=== PATIENT | male | born 1980 | race Caucasian/White ===

== ENCOUNTER 2021-01-01 13:12 | Inpatient (IN) | payer OTHER ==
[~2021-01-01] VITALS: Ht 180.3 cm; Wt 113.4 kg
[2021-01-01 13:26] VITALS: BP 112/83
[2021-01-01 13:38] LABS: URINE BLOOD NEGATIVE (Negative); URINE CLARITY CLEAR; URINE COLOR YELLOW; URINE GLUCOSE-RANDOM NEGATIVE (Negative); URINE KETONES TRACE (Negative); URINE LEUKOCYTES-REFLEX NEGATIVE (Negative); URINE NITRITE-REFLEX NEGATIVE (Negative); URINE PROTEIN 2+ (Negative); URINE SPECIFIC GRAVITY >= 1.030 (1.005-1.030)
[2021-01-01 13:50] LABS: URINE BILIRUBIN 1+ (Negative)
[2021-01-01 13:51] LABS: ICTOTEST (BILI CONFIRMATORY) Negative (Negative)
[2021-01-01 13:52] LABS: BACTERIA-REFLEX 1-9 Few /HPF (None Seen); CRYSTALS None Seen /LPF (None Seen); HYALINE CASTS 0-3 Few /LPF (None Seen); MUCUS >6 Heavy strn/LPF (None Seen); SQUAMOUS 4-10 Moderate /LPF (0-3); URINE RBC 0-2 Rare /HPF (0-2); URINE WBC-REFLEX 0-5 Rare /HPF (0-5)
[2021-01-01 14:45] LABS: ABSOLUTE BASOPHILS 0.1 thou/uL (0.0-0.2); ABSOLUTE EOSINOPHILS 0.1 thou/uL (0.0-0.7); ABSOLUTE MONOCYTES 1.3 thou/uL (0.0-1.2); ABSOLUTE NEUTROPHILS 10.6 thou/uL (1.6-8.1); LYMPHOCYTES 14.3 %; MCH 30.7 pg (26.0-34.0); MCHC 34.9 g/dL (28.0-37.0); MONOCYTES 9.1 %; MPV 8.2 fl. (7.2-11.1); NUCLEATED RBCS 0 /100WBC; PLATELET COUNT* 307 thou/uL (150-400); POLYS 74.6 %; RBC 4.89 mil/uL (4.50-6.00); RDW-CV 12.8 % (10.5-14.5); WBC 14.3 thou/uL (4.0-11.0)
[2021-01-01 14:54] LABS: CALCIUM 9.7 mg/dL (8.5-10.1); CREATININE 1.3 mg/dL (0.6-1.3); POTASSIUM 3.9 mmol/L (3.5-5.1)
[2021-01-01 14:59] LABS: TOTAL PROTEIN 8.6 g/dL (6.4-8.2)
[2021-01-01 21:58] VITALS: BP 116/80
[2021-01-02] VITALS (7 sets, daily range): BP systolic 128–149; BP diastolic 80–97
[2021-01-02 03:08] LABS: ABSOLUTE EOSINOPHILS 0.1 thou/uL (0.0-0.7); ABSOLUTE LYMPHOCYTES 1.8 thou/uL (0.8-5.3); ABSOLUTE MONOCYTES 1.3 thou/uL (0.0-1.2); BASOPHILS 0.3 %; EOSINOPHILS 0.4 %; LYMPHOCYTES 11.8 %; MCH 30.4 pg (26.0-34.0); MCHC 34.1 g/dL (28.0-37.0); MCV 89.3 fL (80.0-100.0); MONOCYTES 8.5 %; MPV 8.4 fl. (7.2-11.1); NUCLEATED RBCS 0 /100WBC; PLATELET COUNT* 297 thou/uL (150-400); RBC 4.59 mil/uL (4.50-6.00); WBC 15.2 thou/uL (4.0-11.0)
[2021-01-02 03:25] LABS: ALBUMIN 3.9 g/dL (3.4-5.0); CALCIUM 9.4 mg/dL (8.5-10.1); CREATININE 1.3 mg/dL (0.6-1.3)
--- NOTE | 2021-01-02 18:42 | NUR ---
PATIENT ARRIVED FROM ER THIS EVENING. PATIENT SETTLED TO ROOM. PATIENT DENIES ANY CURRENT PAIN, STATES IT IS INTERMITTENT WITH MOVEMENT. PATIENT TOLERATING CLEAR LIQUID DIET. BM TODAY. PATIENT IS UP AD ANA IN ROOM. PATIENT IS IN SHOWER AT THIS TIME. WILL CONTINUE TO MONITOR.
[2021-01-03 04:26] LABS: HEMATOCRIT 38.1 % (42.0-52.0); HEMOGLOBIN 13.1 gm/dL (14.0-18.0); MCH 30.5 pg (26.0-34.0); MCHC 34.3 g/dL (28.0-37.0); MCV 88.8 fL (80.0-100.0); MPV 8.6 fl. (7.2-11.1); RBC 4.29 mil/uL (4.50-6.00); RDW-CV 12.7 % (10.5-14.5); WBC 10.5 thou/uL (4.0-11.0)
[2021-01-03 04:44] LABS: CREATININE 1.2 mg/dL (0.6-1.3)
--- NOTE | 2021-01-03 05:14 | NUR ---
PT ALERT AND ORIENTED, UP AD ANA, TOLERATING CLD. HE RECEIVED FLUIDS/ABX SCHEDULED. DID NOT REQUEST ANY PAIN MEDS ALL SHIFT AND SAID HE HAD MORE SLEEP THIS SHIFT THAN IN THE PAST TWO NIGHTS. HE WAS ABLE TO WALK AROUND IN HALLWAYS EARLIER IN THE SHIFT. REPORTS FEELING A LOT BETTER.
[2021-01-03 08:20] VITALS: BP 138/90
--- NOTE | 2021-01-03 15:03 | NUR ---
Anticipate dc in 1-2 days. Bacteremia. IVabx. ID plans to transition to oral at dc. Per [facility], Pt is over income and does not qualify for [place] [facility]. Pt resides at home. Independent. No DME. No hx of HH or SNF. Goal is home at dc, no needs anticipated.
[2021-01-03 16:56] VITALS: BP 133/91
--- NOTE | 2021-01-03 17:52 | NUR ---
Assummed care at 1930. Pt is alert and oirented. Asssessment done and charted. Pt had antiobiotics infused. Pt had unevenful day. Will continue to provide care.
[2021-01-03 19:56] VITALS: BP 128/92
--- NOTE | 2021-01-04 04:18 | NUR ---
PT UP AD ANA IN HALLS, NO PAIN OR NAUSEA REPORTED. TOLERATING DIET. STATES HE FEELS MUCH BETTER AND READY TO GO HOME. HE RECEIVED ALL MEDS/FLUIDS SCHEDULED.
[2021-01-04 05:44] LABS: HEMATOCRIT 37.8 % (42.0-52.0); HEMOGLOBIN 13.3 gm/dL (14.0-18.0); MCHC 35.1 g/dL (28.0-37.0); MCV 88.2 fL (80.0-100.0); MPV 8.6 fl. (7.2-11.1); RBC 4.29 mil/uL (4.50-6.00); RDW-CV 12.7 % (10.5-14.5)
[2021-01-04 06:04] LABS: CALCIUM 9.6 mg/dL (8.5-10.1); CREATININE 1.2 mg/dL (0.6-1.3); POTASSIUM 4.1 mmol/L (3.5-5.1)
[2021-01-04 08:15] VITALS: BP 139/57
[2021-01-04] MEDS ORDERED: AUGMENTIN 875-1 EACH PO (11:14)
[2021-01-04 11:36] VITALS: BP 139/57
--- NOTE | 2021-01-04 11:50 | NUR ---
PATIENT DISCHARGED TO HOME. DISCHARGE PAPERS REVIEWED AND SIGNED. PRESCRIPTION TRANSMITTED TO PHARMACY AND INFORMATION SHEETS GIVEN. IV REMOVED. PATIENT DENIES ANY FURTHER NEEDS. PATIENT TAKEN AMBULATORY TO EXIT. LEFT BY OWN VEHICLE.
[2021-01-04 12:21] VITALS: BP 139/57
== END 2021-01-04 11:50 | disposition home or self-care (01) | DRG 392 ==
LOC: M.ERS 13:12 → M.TBA-ER 17:30 → M.3W 01-02 17:44
PROVIDERS: Emergency Medicine Emergency Medical Services; Nurse Practitioner Family; Surgery; ADMIT Internal Medicine; ATTEND Internal Medicine
DX: K57.20 Diverticulitis of large intestine with perforation and abscess without bleeding (principal); F17.210 Nicotine dependence, cigarettes, uncomplicated; Z20.822 Contact with and (suspected) exposure to COVID-19